=== PATIENT | male | born 1995 | race Caucasian/White ===

== ENCOUNTER 2016-12-26 02:14 | Emergency (ER) | payer OTHER ==
[~2016-12-26] VITALS: Ht 180.3 cm; Wt 105.0 kg
[2016-12-26 02:17] VITALS: TEMP 36.9; Ht 180.3 cm; Wt 105.0 kg
[2016-12-26] MEDS ORDERED: XYLOCAINE 1%/SOD BICARB 20 ML VIAL INFIL ONE (02:30)
--- NOTE | 2016-12-26 02:46 | EMERGENCY ROOM VISIT NOTE ---
ED Visit Note First contact with patient: 02:19 CHIEF COMPLAINT: Finger laceration HISTORY OF PRESENT ILLNESS: This 21-year-old male patient presents to the emergency department ambulatory after cutting the right fourth and fifth finger on the palmar aspect at the base of the fingers. The bleeding has not stopped. The patient has having difficulty with full flexion of that the fourth finger.. The patient denies any other injuries. The patient's tetanus shot is up to date. REVIEW OF SYSTEMS: A 6 system review of systems was completed with positives and pertinent negatives listed in the HPI. ALLERGIES: No known drug allergies MEDICATIONS: Patient denies PMH: Patient denies SOCIAL HISTORY: The patient lives locally PHYSICAL EXAM: Vital Signs: Reviewed Nurse's notes, vital signs stable. GENERAL : This is a 21-year-old male, in no acute distress, well developed, well nourished. SKIN: There is a 3 cm long laceration on the palmar aspects of the right fourth and fifth finger. The edges gape apart with traction. There is no foreign material in the wound and it looks clean. There is minimal bleeding. No deep structures such as tendons, bones, or nerves are seen in the base of the wound. there is decreased flexion of the right fourth finger. Full range of motion of the wrist and other fingers. Capillary refill less than 2 seconds. Normal sensation to light and sharp touch. EMERGENCY DEPARTMENT COURSE: I examined the patient. The 2 cm long laceration on the palmar aspect of the right fifth finger was repaired. Using sterile technique the wound was cleaned with Betadine. 3 ml of 1% buffered lidocaine was used to infiltrate the wound to anesthetize the patient. The area was sterilely draped. Once the patient was numb, the wound was copiously irrigated under pressure with sterile saline. The wound was explored and there were no deep structures such as tendons, bone, or ligaments present. The laceration was repaired using 5 simple interrupted 5-0 nylon sutures. The patient tolerated the procedure well. The bleeding stopped. The area was cleaned with sterile saline and dressed with bacitracin ointment and bandage.the 3 cm laceration on the palmar aspect of the base of the right fourth finger was prepped in a similar fashion. I could not visualize any obvious tendon involvement; however, the patient is unable to flex the finger very well it is weak. The patient will be placed on Keflex He was placed in a metal splint He should contact an orthopedic doctor to schedule a follow-up appointment for further evaluation and management He should return sooner with worsening symptoms. The patient was discharged home in good condition. 5 each DIAGNOSIS: Finger laceration DISCHARGE INSTRUCTIONS & TREATMENT: Keep wound clean and dry. Do not allow any crusting or dried blood to accumulate on sutures. If this occurs, use a 1:1 solution of hydrogen peroxide/water on a Q-tip to clean the wound. Use an antibiotic ointment for 3-4 days, then let wound dry. Suture removal in 10-12 days. Return sooner for any signs of infection (increasing redness, swelling, drainage). Ice and elevate for swelling and pain. Ibuprofen 600 mg Keep covered when in sun until sutures removed then SPF 50 or higher for one year. Vitamin E oil if desired two weeks after suture removal for reduction of scar. Keflex as prescribed, until finished to help prevent infection Wear the splint until seen by orthopedics Contact orthopedics to schedule a follow-up appointment for further evaluation and management of the finger and tendon Return with worsening symptoms Current/Historical Medications Scheduled Cephalexin Monohydrate (Keflex), 500 MG PO QID Allergies Coded Allergies: No Known Allergies (Unverified , 12/26/16) Vital Signs Date Time Temp Pulse Resp B/P (MAP) Pulse Ox O2 Delivery O2 Flow Rate FiO2 12/26/16 03:42 111 17 114/84 97 Room Air 12/26/16 02:17 36.9 117 22 123/75 98 Room Air Medications Administered Medications (Trade) Dose Ordered Sig/Kellie Route Start Time Stop Time Status Last Admin Dose Admin Cephalexin Monohydrate (Keflex 500MG Home Pack) 1 homepack NOW ONCE PO 12/26/16 03:15 12/26/16 03:16 DC 12/26/16 03:42 1 HOMEPACK Departure Information Impression Primary Impression: Laceration of finger Dispostion Home / Self-Care Condition GOOD Prescriptions Cephalexin Monohydrate (Keflex) 500 Mg Cap 500 MG PO QID for 7 Days, #28 CAP Prov: Adelita Trujillo PA-C 12/26/16 Patient Instructions ED Laceration All, [facility] Additional Instructions Keep wound clean and dry. Do not allow any crusting or dried blood to accumulate on sutures. If this occurs, use a 1:1 solution of hydrogen peroxide/ water on a Q-tip to clean the wound. Use an antibiotic ointment for 3-4 days, then let wound dry. Suture removal in 10-12 days. Return sooner for any signs of infection (increasing redness, swelling, drainage). Ice and elevate for swelling and pain. Ibuprofen 600 mg Keep covered when in sun until sutures removed then SPF 50 or higher for one year. Vitamin E oil if desired two weeks after suture removal for reduction of scar. Keflex as prescribed, until finished to help prevent infection Wear the splint until seen by orthopedics Contact orthopedics to schedule a follow-up appointment for further evaluation and management of the finger and tendon Return with worsening symptoms Problem Qualifiers Primary Impression: Laceration of finger Encounter type: initial encounter
[2016-12-26] MEDS ORDERED: CEPHALEXIN 500MG HOME PACK 1 EA BTL PO ONE (03:15)
[2016-12-26] MEDS ORDERED: CEPH500C PO (03:15)
[2016-12-26 03:42] VITALS: BP 114/84; PULSE 111; O2SAT 97
== END 2016-12-26 03:45 | disposition home or self-care (01) ==
LOC: C.EDC 02:16
DX: S61.214A Laceration without foreign body of right ring finger without damage to nail, initial encounter (principal); S61.216A Laceration without foreign body of right little finger without damage to nail, initial encounter; W26.0XXA Contact with knife, initial encounter; Y92.89 Other specified places as the place of occurrence of the external cause